=== PATIENT | female | born 1985 | race Caucasian/White ===

== ENCOUNTER 2024-06-03 08:18 | Emergency (ER) | payer SELFPAY ==
[~2024-06-03] VITALS: Ht 157.5 cm; Wt 76.2 kg
[2024-06-03 08:25] VITALS: BP 118/69; PULSE 80; RESP 18; TEMP 97.6; O2SAT 96
[2024-06-03] MEDS ORDERED: IBUP-1984 PO (09:21)
[2024-06-03] MEDS ORDERED: PENI500T2 PO (09:21)
== END 2024-06-03 09:31 | disposition home or self-care (01) ==
LOC: ER 08:20
DX: J02.9 Acute pharyngitis, unspecified (principal); R50.9 Fever, unspecified; M79.10 Myalgia, unspecified site; Z79.1 Long term (current) use of non-steroidal anti-inflammatories (NSAID)
CPT/HCPCS: 99283

== ENCOUNTER 2024-06-07 09:55 | Emergency (ER) | payer SELFPAY ==
[~2024-06-07] VITALS: Ht 160 cm; Wt 76.0 kg
[~2024-06-07 09:55] MED LIST: IBUP-1984 PO; PENI500T2 PO
[2024-06-07 09:58] VITALS: BP 118/74; PULSE 80; RESP 18; TEMP 99.1; O2SAT 95
[2024-06-07] MEDS ORDERED: BENZ-38 PO (11:37)
[2024-06-07] MEDS ORDERED: ALBU8HFA INH (11:37)
[2024-06-08] MEDS ORDERED: AMOX-117 PO (11:59)
== END 2024-06-07 12:00 | disposition home or self-care (01) ==
LOC: ER 09:55
DX: J32.8 Other chronic sinusitis (principal); J22 Unspecified acute lower respiratory infection; Z79.1 Long term (current) use of non-steroidal anti-inflammatories (NSAID); Z79.899 Other long term (current) drug therapy
CPT/HCPCS: 99283

== ENCOUNTER 2024-06-08 10:51 | Emergency (ER) | payer SELFPAY ==
[~2024-06-08] VITALS: Ht 157.5 cm; Wt 76.2 kg
[~2024-06-08 10:51] MED LIST changes: +ALBU8HFA INH; +BENZ-38 PO
[2024-06-08] MEDS ORDERED: AMOX-117 PO (11:59)
[2024-06-08 12:04] VITALS: BP 119/77; PULSE 67; RESP 15; TEMP 98.4; O2SAT 99
== END 2024-06-08 12:06 | disposition home or self-care (01) ==
LOC: ER 10:52
DX: S61.231A Puncture wound without foreign body of left index finger without damage to nail, initial encounter (principal); H92.02 Otalgia, left ear; Z79.2 Long term (current) use of antibiotics; Z79.899 Other long term (current) drug therapy; W55.01XA Bitten by cat, initial encounter; Y93.89 Activity, other specified; Y92.89 Other specified places as the place of occurrence of the external cause; Y99.8 Other external cause status
CPT/HCPCS: 99283